=== PATIENT | male | born 1965 | race African-American/Black ===

== ENCOUNTER 2019-04-04 05:09 | Emergency (ER) | payer MEDICARE, OTHER ==
[2019-04-04 06:16] LABS: ADD MAN DIFF? NO
[2019-04-04 06:21] LABS: WHITE BLOOD COUNT 10.2 10^3/ul (4.8-10.8)
[2019-04-04 06:21] LABS: BASOPHILS % 0.3 % (0.0-2.0); EOSINOPHILS # 0.1 10^3/ul (0.0-0.5); EOSINOPHILS % 0.6 % (0.0-7.0); HEMATOCRIT 45.8 % (42.0-52.0); HEMOGLOBIN 14.9 g/dl (14.0-18.0); LYMPHOCYTES # 1.4 10^3/ul (0.8-2.9); LYMPHOCYTES % 13.9 % (15.0-51.0); MEAN CORPUSCULAR HEMOGLOBIN 30.2 pg (29.0-33.0); MEAN CORPUSCULAR HGB CONC 32.5 g/dl (32.0-37.0); MEAN CORPUSCULAR VOLUME 92.9 fl (82.0-101.0); MEAN PLATELET VOLUME 10.4 fl (7.4-10.4); MONOCYTE # 0.4 10^3/ul (0.3-0.9); MONOCYTES % 4.1 % (0.0-11.0); NEUTROPHIL # 8.3 10^3/ul (1.6-7.5); NEUTROPHILS % 80.9 % (39.0-77.0); PLATELET COUNT 225 10^3/UL (140-415); RED BLOOD COUNT 4.93 10^6/ul (4.70-6.10); RED CELL DISTRIBUTION WIDTH 12.3 % (11.5-14.5)
[2019-04-04] MEDS ORDERED: KETOROLAC 30 MG INJ IM (06:22)
[2019-04-04 06:39] LABS: ALANINE AMINOTRANSFERASE 30 IU/L (13-69); ALBUMIN 4.1 g/dl (3.3-4.9); ALBUMIN/GLOBULIN RATIO 1.46; ALKALINE PHOSPHATASE 56 IU/L (42-121); ANION GAP 8 (5-13); ASPARTATE AMINO TRANSFERASE 26 IU/L (15-46); BILIRUBIN,INDIRECT 0.6 mg/dl (0-1.1); BILIRUBIN,TOTAL 0.6 mg/dl (0.2-1.3); BLOOD UREA NITROGEN 11 mg/dl (7-20); CALCIUM 9.5 mg/dl (8.4-10.2); CARBON DIOXIDE 26 mmol/L (21-31); CHLORIDE 105 mmol/L (97-110); Estimated GFR > 60 mL/min (>60); GLUCOSE 103 mg/dl (70-220); LIPASE 25 U/L (23-300); POTASSIUM 3.5 mmol/L (3.5-5.1); SODIUM 139 mmol/L (135-144); TOTAL PROTEIN 6.9 g/dl (6.1-8.1)
[2019-04-04] MEDS: FAMOTIDINE 20 MG TAB PO (06:56)
[2019-04-04] MEDS: BELLADONNA/PHENOBARBITAL TAB PO (06:56)
[2019-04-04] MEDS: KETOROLAC 15 MG INJ IV (06:56)
[2019-04-04] MEDS: LIDOCAINE/MYLANTA 40 ML BTL PO (06:56)
[2019-04-04] MEDS: SOD CHLORIDE 0.9% 500 ML IV (06:57)
[2019-04-04] MEDS ORDERED: ONDANSETRON 4 MG INJ (07:04)
[2019-04-04] MEDS: ONDANSETRON 4 MG INJ IV (07:05)
== END 2019-04-04 10:40 | disposition home or self-care (01) ==
LOC: E/R 05:09
DX: N20.1 Calculus of ureter (principal)
CPT/HCPCS: 36415; 74176; 80053; 83690; 85025; 96374; 96375; 99285-25